=== PATIENT | female | born 1985 | race Caucasian/White ===

== ENCOUNTER 2021-06-20 09:50 | Inpatient (IN) ==
[2021-06-20] MEDS ORDERED: VANCOMYCIN INJ 1,000 MG in SODIUM CHLORIDE 0.9% 250 ML IV STA (11:00)
[2021-06-20] MEDS ORDERED: SODIUM CHLORIDE 0.9% 1,000 ML IV STA (11:01)
[2021-06-20 12:04] LABS: Basophils % 0.4 % (0.0-0.8); Eosinophils # 0.1 10*3/uL (0.0-0.87); Eosinophils % 1.2 % (0.00-10.9); Hematocrit 36.7 VOL% (35.7-47.0); Hemoglobin 11.6 GM/DL (12.0-16.0); Immature Granulocytes % 0.6 %; Immature Granulocytes Absolute 0.03 #; Lymphocytes # 1.8 10*3/uL (1.4-4.0); Lymphocytes % 36.3 % (21.3-54.2); Mean Corpuscular HGB Conc 31.6 GM/DL (32-36); Mean Corpuscular Volume 88.4 FL (87-102); Mean Platelet Volume 10.1 FL (9.6-12.0); Monocytes % 10.6 % (1.7-12.7); Neutrophils % 50.9 % (38.7-73.9); Platelet Count 238 T/CUMM (130-400); Red Blood Count 4.15 MC/CUMM (3.8-5.5); White Blood Count 4.9 T/CUMM (4-12)
[2021-06-20 12:21] LABS: Alanine Aminotransferase 24 U/L (13-56); Albumin 3.1 G/DL (3.4-5.0); Alkaline Phosphatase 66 U/L (45-117); Aspartate Amino Transferase 22 U/L (0-37); Bilirubin,Total < 0.39 MG/DL (0.20-1.00); Blood Urea Nitrogen 12 MG/DL (7-18); Calcium 9.5 MG/DL (8.5-10.1); Carbon Dioxide 31 MMOL/L (21-32); Estimated Glom Filtration Rate 131 ML/MIN; Glucose 81 MG/DL (74-106); Osmolality,Calculated 273.7 MOS/KG (273-304); Potassium 4.2 MMOL/L (3.5-5.1); Sodium 138 MMOL/L (136-145); Total Protein 8.1 G/DL (6.4-8.2)
[2021-06-20 12:40] LABS: Bacteria,Urine Occasional /HPF (Few); Bilirubin,Urine Negative (Negative); Blood, Urine Moderate mg/dL (Negative); Glucose,Urine (UA) Negative (Negative); Ketones,Urine Negative (Negative); Mucus,Urine Occasional /LPF (Occasional); Nitrite,Urine Negative (Negative); Protein,Urine Negative; RBC,Urine 2 /HPF (0-4); Squamous Epithelial Cell,Urine Occasional /HPF (0-10); Urine Appearance CLEAR (Clear); Urine Color Yellow (Yellow); Urine Specific Gravity 1.013 (1.001-1.035); Urine Urobilinogen < 2.0 EU/DL (0.2-1.0)
[2021-06-20 12:52] LABS: Barbiturates Screen,Urine Negative (Negative); Benzodiazepines Screen,Urine Negative (Negative); Cannabinoid Screen,Urine Negative (Negative); Opiate Screen,Urine Negative (Negative); Phencyclidine Screen,Urine Negative (Negative)
[2021-06-20] MEDS ORDERED: DIAZEPAM 5 MG TABLET PO STA (14:50)
[2021-06-20] MEDS ORDERED: ONDANSETRON 4 MG/2 ML VIAL IV PRN (18:10)
[2021-06-20] MEDS ORDERED: GLUCAGON 1 MG VIAL IM PRN (18:10)
[2021-06-20] MEDS ORDERED: DEXTROSE 50% 25 GM/50 ML VIAL IV PRN (18:10)
[2021-06-20] MEDS ORDERED: LABETALOL 20 MG/4 ML SYRINGE IV PRN (18:29)
[2021-06-20] MEDS: ACETAMINOPHEN 325 MG TABLET PO PRN (19:50)
[2021-06-20] MEDS: SODIUM CHLORIDE 0.9% 1,000 ML IV SCH (19:50)
[2021-06-20] MEDS: ATORVASTATIN 40 MG TABLET PO SCH (22:25)
[2021-06-21] MEDS: SODIUM CHLORIDE 0.9% 1,000 ML IV SCH (04:05)
[2021-06-21 04:17] LABS: Basophils % 0.4 % (0.0-0.8); Eosinophils # 0.1 10*3/uL (0.0-0.87); Eosinophils % 1.6 % (0.00-10.9); Hematocrit 34.3 VOL% (35.7-47.0); Hemoglobin 10.9 GM/DL (12.0-16.0); Immature Granulocytes % 0.4 %; Immature Granulocytes Absolute 0.02 #; Lymphocytes # 1.7 10*3/uL (1.4-4.0); Lymphocytes % 33.6 % (21.3-54.2); Mean Corpuscular HGB Conc 31.8 GM/DL (32-36); Mean Corpuscular Volume 89.1 FL (87-102); Mean Platelet Volume 10.1 FL (9.6-12.0); Monocytes % 9.8 % (1.7-12.7); Neutrophils % 54.2 % (38.7-73.9); Platelet Count 207 T/CUMM (130-400); Red Blood Count 3.85 MC/CUMM (3.8-5.5); Red Cell Distribution Width 14.1 % (9.3-17.3); White Blood Count 4.9 T/CUMM (4-12)
[2021-06-21 04:36] LABS: Alanine Aminotransferase 27 U/L (13-56); Albumin 2.8 G/DL (3.4-5.0); Alkaline Phosphatase 53 U/L (45-117); Aspartate Amino Transferase 29 U/L (0-37); Bilirubin,Total < 0.39 MG/DL (0.20-1.00); Blood Urea Nitrogen 10 MG/DL (7-18); Calcium 8.6 MG/DL (8.5-10.1); Carbon Dioxide 31 MMOL/L (21-32); Estimated Glom Filtration Rate 139 ML/MIN; Glucose 78 MG/DL (74-106); HDL Cholesterol 48 MG/DL (40-60); Hypochromasia Slight; Microcytosis Slight; Osmolality,Calculated 270.8 MOS/KG (273-304); Potassium 4.1 MMOL/L (3.5-5.1); Risk Ratio 2.35; Sodium 137 MMOL/L (136-145); Total Protein 7.6 G/DL (6.4-8.2); Triglycerides 142 MG/DL (2-150); VLDL Cholesterol 28.4 MG/DL
[2021-06-21 04:37] LABS: Platelet Estimate Adequate
[2021-06-21] MEDS: KETOCONAZOLE 2% CREAM 30 GM TUBE TOP SCH (09:00)
[2021-06-21] MEDS: ASPIRIN CHEW 81 MG TABLET PO SCH (11:12)
[2021-06-21] MEDS: ATORVASTATIN 40 MG TABLET PO SCH (21:24)
[2021-06-21] MEDS: ACETAMINOPHEN 325 MG TABLET PO PRN (21:26)
[2021-06-22] MEDS: SODIUM CHLORIDE 0.9% 1,000 ML IV SCH (01:21)
[2021-06-22 05:06] LABS: Basophils % 0.5 % (0.0-0.8); Eosinophils # 0.1 10*3/uL (0.0-0.87); Eosinophils % 3.2 % (0.00-10.9); Hematocrit 34.8 VOL% (35.7-47.0); Hemoglobin 11.1 GM/DL (12.0-16.0); Immature Granulocytes Absolute 0.04 #; Lymphocytes # 1.3 10*3/uL (1.4-4.0); Lymphocytes % 32.8 % (21.3-54.2); Mean Corpuscular HGB Conc 31.9 GM/DL (32-36); Mean Corpuscular Volume 89.2 FL (87-102); Mean Platelet Volume 10.3 FL (9.6-12.0); Monocytes % 9.9 % (1.7-12.7); Neutrophils % 52.6 % (38.7-73.9); Platelet Count 213 T/CUMM (130-400); White Blood Count 4.1 T/CUMM (4-12)
[2021-06-22 05:28] LABS: Calcium 8.4 MG/DL (8.5-10.1); Osmolality,Calculated 269.1 MOS/KG (273-304)
[2021-06-22] MEDS: ACETAMINOPHEN 325 MG TABLET PO PRN ×2 (05:38→10:06)
[2021-06-22] MEDS: ASPIRIN CHEW 81 MG TABLET PO SCH (10:06)
[2021-06-22] MEDS: KETOCONAZOLE 2% CREAM 30 GM TUBE TOP SCH (10:07)
[2021-06-22] MEDS: ATORVASTATIN 40 MG TABLET PO SCH (20:57)
[2021-06-23 04:49] LABS: Basophils % 0.6 % (0.0-0.8); Eosinophils # 0.1 10*3/uL (0.0-0.87); Eosinophils % 2.8 % (0.00-10.9); Hematocrit 34.2 VOL% (35.7-47.0); Hemoglobin 10.9 GM/DL (12.0-16.0); Immature Granulocytes % 0.6 %; Immature Granulocytes Absolute 0.03 #; Lymphocytes # 1.5 10*3/uL (1.4-4.0); Lymphocytes % 30.1 % (21.3-54.2); Mean Corpuscular HGB Conc 31.9 GM/DL (32-36); Mean Corpuscular Volume 89.5 FL (87-102); Mean Platelet Volume 11.1 FL (9.6-12.0); Monocytes % 10.4 % (1.7-12.7); Neutrophils % 55.5 % (38.7-73.9); Platelet Count 192 T/CUMM (130-400); Red Blood Count 3.82 MC/CUMM (3.8-5.5)
[2021-06-23 05:12] LABS: Atypical Lymphocytes Few; Platelet Estimate Adequate
[2021-06-23 05:13] LABS: Anisocytosis Slight
[2021-06-23 05:14] LABS: Calcium 8.7 MG/DL (8.5-10.1); Osmolality,Calculated 272.8 MOS/KG (273-304); Potassium 4.2 MMOL/L (3.5-5.1)
[2021-06-23] MEDS: ACETAMINOPHEN 325 MG TABLET PO PRN (10:16)
[2021-06-23] MEDS: KETOCONAZOLE 2% CREAM 30 GM TUBE TOP SCH (10:17)
[2021-06-23] MEDS: ASPIRIN CHEW 81 MG TABLET PO SCH (10:17)
[2021-06-23] MEDS: ATORVASTATIN 40 MG TABLET PO SCH (22:11)
[2021-06-24 04:47] LABS: Basophils % 0.5 % (0.0-0.8); Eosinophils # 0.2 10*3/uL (0.0-0.87); Eosinophils % 3.6 % (0.00-10.9); Hematocrit 32.9 VOL% (35.7-47.0); Hemoglobin 10.5 GM/DL (12.0-16.0); Immature Granulocytes % 0.7 %; Immature Granulocytes Absolute 0.03 #; Lymphocytes # 1.6 10*3/uL (1.4-4.0); Lymphocytes % 39.1 % (21.3-54.2); Mean Corpuscular HGB Conc 31.9 GM/DL (32-36); Mean Corpuscular Volume 89.6 FL (87-102); Mean Platelet Volume 10.1 FL (9.6-12.0); Monocytes % 10.1 % (1.7-12.7); Platelet Count 188 T/CUMM (130-400); Red Blood Count 3.67 MC/CUMM (3.8-5.5); Red Cell Distribution Width 13.8 % (9.3-17.3); White Blood Count 4.1 T/CUMM (4-12)
[2021-06-24 05:13] LABS: Calcium 8.6 MG/DL (8.5-10.1); Potassium 4.2 MMOL/L (3.5-5.1)
[2021-06-24] MEDS: ASPIRIN CHEW 81 MG TABLET PO SCH (08:46)
[2021-06-24] MEDS: KETOCONAZOLE 2% CREAM 30 GM TUBE TOP SCH (08:46)
[2021-06-24] MEDS: ATORVASTATIN 40 MG TABLET PO SCH (20:42)
[2021-06-24] MEDS: ACETAMINOPHEN 325 MG TABLET PO PRN (20:45)
[2021-06-25] MEDS: ASPIRIN CHEW 81 MG TABLET PO SCH (09:17)
[2021-06-25] MEDS: KETOCONAZOLE 2% CREAM 30 GM TUBE TOP SCH (09:18)
[2021-06-25] MEDS: ATORVASTATIN 40 MG TABLET PO SCH (21:17)
[2021-06-26] MEDS: ASPIRIN CHEW 81 MG TABLET PO SCH (07:59)
[2021-06-26] MEDS: KETOCONAZOLE 2% CREAM 30 GM TUBE TOP SCH (08:01)
[2021-06-26 11:01] VITALS: BP 102/60
== END 2021-06-26 11:56 | disposition home or self-care (01) | DRG 65 ==
LOC: N.ED 09:50 → N.EDINP 09:50 → N.5E 06-21 12:26 → SUATTDRO 06-22 14:19
PROVIDERS: ADMIT Emergency Medicine; ATTEND Internal Medicine